=== PATIENT | male | born 1970 | race American Indian/Alaskan Native ===

== ENCOUNTER 2021-09-30 11:32 | Emergency (ER) | payer SELFPAY ==
[2021-09-30] MEDS ORDERED: LISINOPRIL 20 MG TAB PO ONE (12:21)
[2021-09-30] MEDS ORDERED: IBUPROFEN 800 MG TAB PO ONE (12:22)
--- NOTE | 2021-09-30 12:57 | Emergency Department Report ---
ED General Adult HPI - General Chief complaint: High BP Stated complaint: HBP PUI?: No Time Seen by Provider: 09/30/21 12:08 Source: patient Mode of arrival: Ambulatory Limitations: No Limitations - History of Present Illness Initial comments: 51 yo male come to ER because work sent him to get his bp meds. He has hx htn but has been off meds "for a while." He denies any symptoms. No cp. No sob. No headache. He is neuro intact. Ambulatory to ER. He is new to the area No other ER visit here States he was on lisinopril in the past. He state they checked bp at work; per routine and told him it was high to see pcp. he does not have one so he comes here. 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 he has NO CP. NO left arm pain. This pain is only with movement -: Gradual Severity scale (0 -10): 7 Associated Symptoms: denies other symptoms Treatments Prior to Arrival: none - Related Data Previous Rx's Medication Instructions Recorded Last Taken Type lisinopriL [Lisinopril] 20 mg PO QAM #30 09/30/21 Unknown Rx Allergies Allergy/AdvReac Type Severity Reaction Status Date / Time No Known Allergies Allergy Unverified 09/30/21 12:32 ED Review of Systems ROS: Stated complaint: HBP Other details as noted in HPI Comment: All other systems reviewed and negative ED Past Medical Hx - Past Medical History Previous Medical History?: Yes Hx Hypertension: Yes - Surgical History Past Surgical History?: No - Family History Family history: no significant - Social History Smoking Status: Never Smoker Substance Use Type: Alcohol - Medications Home Medications: Home Medications Medication Instructions Recorded Confirmed Last Taken Type lisinopriL [Lisinopril] 20 mg PO QAM #30 09/30/21 Unknown Rx ED Physical Exam - General Limitations: No Limitations General appearance: alert, in no apparent distress - Head Head exam: Present: atraumatic, normocephalic - Eye Eye exam: Present: normal appearance - ENT ENT exam: Present: mucous membranes moist - Neck Neck exam: Present: normal inspection - Respiratory Respiratory exam: Present: normal lung sounds bilaterally. Absent: respiratory distress - Cardiovascular Cardiovascular Exam: Present: regular rate, normal rhythm. Absent: systolic murmur, diastolic murmur, rubs, gallop - GI/Abdominal GI/Abdominal exam: Present: soft, normal bowel sounds - Rectal Rectal exam: Present: deferred - Extremities Exam Extremities exam: Present: normal inspection - Back Exam Back exam: Present: normal inspection - Neurological Exam Neurological exam: Present: alert, oriented X3 - Psychiatric Psychiatric exam: Present: normal affect, normal mood - Skin Skin exam: Present: warm, dry, intact, normal color. Absent: rash ED Course Vital Signs 09/30/21 11:45 Temperature 98.3 F Pulse Rate 68 Respiratory 18 Rate Blood Pressure 173/107 O2 Sat by Pulse 100 Oximetry ED Medical Decision Making - Medical Decision Making Vital Signs 09/30/21 11:45 Temperature 98.3 F Pulse Rate 68 Respiratory 18 Rate Blood Pressure 173/107 O2 Sat by Pulse 100 Oximetry lisinopril in ER dc home with detailed discharge instructions including diet/activity/meds and follow up. He will monitor and record bp and take to pcp he verbalizes understanding of plan of care. on dc pt ambulatory, non ill non toxic; neuro intact and without complaint - Differential Diagnosis a/c htn- med refill/no symptoms Critical care attestation.: If time is entered above; I have spent that time in minutes in the direct care of this critically ill patient, excluding procedure time. ED Disposition Clinical Impression: Medication refill, Nonadherence to medical treatment, Musculoskeletal pain, Chronic hypertension Disposition: 01 HOME / SELF CARE / HOMELESS Is pt being admited?: No Does the pt Need Aspirin: No Condition: Stable Instructions: Preventing Hypertension, Hypertension, Adult, Hypertension (ED) Additional Instructions: take bp med daily monitor your blood pressure it will take a few days to work well record by same time of day- same arm- same cuff; and record it take it to pcp next week he will eval if it needs changed referral to pcp below low fat/low salt diet stay well hydrated with water avoid alcohol motrin or tylenol for pain Prescriptions: lisinopriL [Lisinopril] 20 mg PO QAM #30 Referrals: BETTYE VEGA MD [Staff Physician] - 3-5 Days Forms: Work/School Release Form(ED) Time of Disposition: 14:02
[2021-09-30 14:36] VITALS: BP 164/107
== END 2021-09-30 14:34 | disposition home or self-care (01) ==
LOC: ED 11:32
DX: I10 Essential (primary) hypertension (principal); Z76.0 Encounter for issue of repeat prescription; Z91.19 Patient's noncompliance with other medical treatment and regimen; M79.10 Myalgia, unspecified site
CPT/HCPCS: 99282

== ENCOUNTER 2021-11-24 03:28 | Emergency (ER) | payer SELFPAY ==
[2021-11-24 03:35] VITALS: BP 199/113
== END 2021-11-24 03:53 | disposition left against medical advice (07) ==
LOC: ED 03:28
DX: M54.9 Dorsalgia, unspecified (principal); Z53.21 Procedure and treatment not carried out due to patient leaving prior to being seen by health care provider